=== PATIENT | male | born 2005 | race Two or more races ===

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

== ENCOUNTER 2025-09-08 09:09 | Outpatient (CLI) | payer OTHER | END 2025-09-08 09:16 | disposition home or self-care (01) | LOC: MRI 09:09 | PROVIDERS: ATTEND Orthopaedic Surgery | DX: M25.561 Pain in right knee (principal); M25.562 Pain in left knee; M23.91 Unspecified internal derangement of right knee; M23.92 Unspecified internal derangement of left knee; M25.551 Pain in right hip; M25.552 Pain in left hip; M79.641 Pain in right hand; M79.645 Pain in left finger(s) | CPT/HCPCS: 73721 ==

== ENCOUNTER → 2025-09-08 09:23 | Outpatient (CLI) | payer OTHER ==
[2025-09-08 13:27] LABS: ALT/SGPT 21.0 U/L (12-78); AST/SGOT 12.0 U/L (15-37); BILIRUBIN TOTAL 1.14 mg/dL (0.3-1.2); BUN CREA RATIO 17.0 (7.0-25.0); CREATININE SERUM 0.76 mg/dL (0.70-1.30); GFR 132.13; GLOBULINA 3.9 G/DL (2.4-3.5); GLUCOSE FASTING 84.0 mg/dL (65-100); OSMOLALITY SERUM 281.0 MOSM/KG (275-295); TSH 1.76 uIU/mL (0.358-3.74)
[2025-09-10 16:11] LABS: CALCIUM IONIZED 5.1 mg/dL (4.5-5.6)
== END | disposition home or self-care (01) ==
LOC: LAB 09:23
PROVIDERS: ATTEND Orthopaedic Surgery
DX: E55.9 Vitamin D deficiency, unspecified (principal); M85.9 Disorder of bone density and structure, unspecified; E56.1 Deficiency of vitamin K; E21.3 Hyperparathyroidism, unspecified; E88.9 Metabolic disorder, unspecified; M81.8 Other osteoporosis without current pathological fracture; E03.9 Hypothyroidism, unspecified